=== PATIENT | male | born 1940 | race Caucasian/White ===

== ENCOUNTER 2019-09-23 15:00 | Inpatient (IN) ==
[2019-09-23] MEDS ORDERED: SODIUM CHLORIDE 0.9% 1000ML 500 ML IV ONE (15:17)
[2019-09-23] MEDS ORDERED: KETOROLAC TROMETHAMINE 15 MG/ML VIAL IV STA (15:19)
[2019-09-23] MEDS ORDERED: ONDANSETRON INJ 2 MG/ML 2 ML VIAL IV STA (15:19)
[2019-09-23 16:08] LABS: Basophils # (auto) 0.02 K/uL (0-0.2); Basophils % (auto) 0.2 %; Eosinophils # (auto) 0.06 K/uL (0-0.5); Eosinophils % (auto) 0.7 %; Hemoglobin 12.7 g/dL (14.0-18.0); Immature Granulocytes # (auto) 0.01 K/uL (0.00-0.02); Immature Granulocytes % (auto) 0.1 %; Lymphocytes # (auto) 0.57 K/uL (1.2-3.4); Lymphocytes % (auto) 7.1 %; Mean Corpuscular Hemoglobin 28.9 pg (25-34); Mean Corpuscular Hgb Conc 33.4 g/dL (32-36); Mean Corpuscular Volume 86.4 fL (80-100); Mean Platelet Volume 10.7 fL (7.4-10.4); Monocytes # (auto) 0.67 K/uL (0.11-0.59); Monocytes % (auto) 8.3 %; Neutrophils # (auto) 6.71 K/uL (1.4-6.5); Neutrophils % (auto) 83.6 %; Platelet Count 236 K/uL (130-400); RDW Standard Deviation 41.3 fL (36.4-46.3); White Blood Count 8.04 K/uL (4.8-10.8)
--- NOTE | 2019-09-23 16:25 | CT Scan Report ---
CT SCAN OF THE ABDOMEN AND PELVIS WITHOUT CONTRAST CLINICAL HISTORY: L flank pain. Evaluate for renal or ureteral calculus COMPARISON STUDY: Outside study dated September 2019 TECHNIQUE: CT scan of the abdomen and pelvis was performed from the lung bases to the proximal femurs . Images are reviewed in the axial, sagittal, and coronal planes. IV contrast was not administered fo r this examination. A dose lowering technique was utilized adhering to the principles of ALARA. CT DOSE: 802.55 mGycm FINDINGS: Lower chest: There are bilateral dependent parenchymal opacities. The left lower lobe opacity is wedg e-shaped and peripheral. A pulmonary infarct cannot be excluded. Liver: The unenhanced liver is normal in size, contour, and attenuation. There is no intrahepatic femi iary ductal dilatation. Gallbladder: Cholelithiasis Spleen: Normal in size and attenuation. Pancreas: Unremarkable. Adrenal glands: Unremarkable. Kidneys: There is a punctate nonobstructing lower pole left renal calculus. There is a 32 mm left gamal al cyst. There has been resolution of the previously described left-sided hydronephrosis and hydroure ter. There is an 11 x 7 x 7 mm left UVJ calculus. Bowel: There are no transition zones indicate bowel obstruction. There is no acute diverticulitis. Th ere are surgical clips at the level of the cecal tip with surrounding nodular stranding. This remains unchanged from the prior study and is likely postsurgical Peritoneum: There is no intraperitoneal free air or abdominal ascites. Vasculature: There is an aortic aneurysm status post aortobiiliac stent grafting. The stent extends s uperior to the level of the renal arteries. The [place] aneurysmal sac measures 45 mm. Adenopathy: None. Pelvic viscera: The prostate is enlarged Skeletal structures: No destructive osseous lesions are seen. IMPRESSION: 1. 11 x 7 x 7 mm distal left ureteral calculus at the level of the left ureterovesical junction. Ther e is no current evidence of significant obstructive change 2. Punctate lower pole left renal calculus 3. Cholelithiasis 4. No evidence of bowel obstruction. No evidence of free air 5. Surgical clips the level of the cecal tip with surrounding nodular stranding. This remain stable a nd is likely postsurgical 6. Dependent airspace opacities, likely atelectatic. The left lower lobe opacity is somewhat wedge-sh aped, and therefore the sequela of a pulmonary infarct cannot be excluded 7. Prostatomegaly 8. Infrarenal abdominal aortic aneurysm status post aortobiiliac stent graft ACT 112: Negative or not required by law. Electronically signed by: Tripp Blair M.D. 09/23/2019 4:24 PM
[2019-09-23 16:30] LABS: Albumin Level 3.5 gm/dl (3.4-5.0); BUN Creatinine Ratio 13.4 (10-20); Bilirubin Direct 0.2 mg/dl (0-0.2); Creatinine Clr Calc Pharmacy 48.2 ml/min; Est GFR (African American) 53.7; Est GFR (Non-African American) 46.3; Magnesium 1.9 mg/dl (1.8-2.4); Potassium 4.3 mmol/L (3.5-5.1)
[2019-09-23 16:33] LABS: Bilirubin,Total 0.9 mg/dl (0.2-1); Total Protein 7.4 gm/dl (6.4-8.2)
[2019-09-23] MEDS ORDERED: cefTRIAXone SODIUM 1,000 MG/50 ML BAG IV STA ×2 (16:34→18:07)
[2019-09-23] MEDS ORDERED: SODIUM CHLORIDE 0.9% 1000ML 1,000 ML IV ONE ×2 (17:36→21:00)
[2019-09-23] MEDS ORDERED: MAGNESIUM HYDROXIDE SUSP 30 ML UDC PO PRN (17:55)
[2019-09-23] MEDS ORDERED: ACETAMINOPHEN 325 MG TAB PO PRN (17:55)
[2019-09-23] MEDS ORDERED: ALUMINUM/MAGNESIUM SUSP 30 ML UDC PO PRN (17:55)
[2019-09-23] MEDS ORDERED: POLYETHYLENE (MIRALAX) 17 GM PACK PO PRN (17:55)
[2019-09-23] MEDS ORDERED: LIDOCAINE HCL 2% 2 ML VIAL/AMP(20MG/ML) INFIL ONE ×2 (18:02→19:17)
[2019-09-23] MEDS ORDERED: PROPOFOL IV EMULSION 10 MG/ML 20 ML VIAL IV ONE (18:02)
[2019-09-23] MEDS ORDERED: fentaNYL citrate 100 MCG/2 ML VIAL ONE (18:03)
--- NOTE | 2019-09-23 18:10 | Anesthesiology Consultation ---
Date of Service September 23, 2019 Assessment & Plan (1) Encounter for pre-operative examination: Chart Review Chart Review: Acceptable Risk for Surgery Consults Requested none ASA ASA3 Proposed Anesthesia Anesthesia Type: MAC Risk / Benefits Reviewed With: PT / POA / Parent / Guardian, Accepts Plan and Informed Consent Obtained History Surgery Operation Date: 09/23/19 17:00 Proposed Procedures p Ureteral Stent Insertion/Removal - Donte Luna MD Height/Weight Height: 6 ft 2 in Weight: 88.4 kg Allergies Allergy/AdvReac Type Severity Reaction Status Date / Time No Known Allergies Allergy Unverified 09/23/19 16:41 Medications Home Medications Medication Instructions Recorded Confirmed Last Taken apixaban [Eliquis] 5 mg PO BID 09/19/19 09/23/19 Unknown carvedilol 12.5 mg PO BID 09/19/19 09/23/19 Unknown cilostazol 100 mg PO BID 09/19/19 09/23/19 Unknown ezetimibe 10 mg PO QPM 09/19/19 09/23/19 Unknown montelukast 10 mg PO QPM 09/19/19 09/23/19 Unknown simvastatin 20 mg PO PM 09/19/19 09/23/19 Unknown tamsulosin 0.4 mg PO HS 09/19/19 09/23/19 Unknown sulfamethoxazole 800 1 tab PO BID 7 Days #14 tab 09/22/19 09/23/19 Unknown mg-trimethoprim 160 mg tablet Active Medications Generic Name Dose Route Start Last Admin Trade Name Freq PRN Reason Stop Dose Admin Sodium Chloride 1,000 mls @ 999 mls/hr 09/23/19 17:36 09/23/19 17:40 Nss 1000ml IV 09/23/19 18:36 999 mls/hr .Q1H1M ONE Administration NPO Date Last Intake of Fluids: 09/23/19 Time Last Intake of Fluids: 12:00 Date Last Intake of Solids: 09/22/19 Past Medical History Medical History Atrial fibrillation on eliquis "diagnosed a couple of years ago" - follows [facility] History of nephrolithiasis Hyperlipidemia Kidney stones On anticoagulant therapy Poor historian Exercise / Class Metabolic Activity II 4-5 Yardwork/Stairs/Walk up hill Past Family History Family History Other No family history of adverse response to anesthesia Past Surgical History Surgical History History of AAA (abdominal aortic aneurysm) repair 2015 History of appendectomy History of colonoscopy History of esophagogastroduodenoscopy (EGD) History of left knee replacement History of tonsillectomy Past Anesthesia History No Hx of Anesthesia Complications and No Family Hx of Anesthesia Complications History of PONV No Hx of PONV and No Hx of Motion Sickness Social History Smoking Status: Unknown if ever smoked Hx Alcohol Use: No Hx Substance Use: No substance use type: does not use Physical Exam Vital Signs Last Vital Signs Temp 99.7 F H 09/23/19 15:09 Pulse 105 H 09/23/19 18:05 Resp 18 09/23/19 18:05 BP 106/73 09/23/19 18:05 Pulse Ox 95 09/23/19 18:05 ENMT Mouth: no dentition abnormality Thyromental Distance: > or= 3.5 Finger Breadths Mallampati Class: II Neck normal visual inspection Respiratory normal respiratory effort Auscultation: lungs clear to auscultation bilaterally Cardiovascular Rate/Rhythm: regular rhythm and + tachycardic Heart Sounds: + murmur (3/6 MANUELA) Testing Laboratory Results 09/23/19 15:55 09/23/19 15:55 Electrocardiogram Date: 09/17/19 Poor data quality, interpretation may be adversely affected Atrial flutter, rate 96 bpm Abnormal ECG When compared with ECG of 24-DEC-2015 11:26, Atrial flutter has replaced Sinus rhythm Confirmed by Donte Diaz ([id number]) on 09/17/2019 4:17:46 PM Chest X-Ray Date: 09/17/19 IMPRESSION: Mild cardiomegaly with no active disease in the chest.
--- NOTE | 2019-09-23 18:10 | History & Physical Report ---
Date of Service September 23, 2019 Assessment & Plan (1) Calculus of distal left ureter: - CT - 11 x 7 x 7 mm distal L ureteral calculus at the level of the L UVJ; no evidence of significant obstructive change; punctate lower pole L renal calculus; cholelithiasis; no bowel obstruction; no free air; surgical clips at level of cecal tip with surrounding nodular stranding likely post-operative (did have a appendenctomy Dec); prostatomegaly; dependent airspace opacity likely atelectic but with some wedge-shaped opacity in LLL cannot R/O pulmonary infarct; infrarenal AAA with stent graft - Patient is without leukocytosis, lactic normal, however is tachycardic, hypotensive, low grade fever, source UTI/stone - concern for obstructive uropathy with mild renal impairment with possible impending sepsis given hypotensive state -- BP did respond with fluid bolus - will await pressures post-operatively for need of additional boluses and then use maintenance fluids - Can continue Flomax 0.4 mg HS - Urology following - discussed with Dr. Luna - patient to OR this evening to stent/stone management (2) Acute kidney injury: - Cr mildly elevated at 1.42 - possibly obstructive uropathy vs some pre- renal dehydration from vomiting/diarrhea - Continue IVF and stone management - reassess labs in AM (3) Acute UTI: - Cx from 09/17 with pansensitive E. coli - Only took one pill of Bactrim and unable to take anymore due to nausea/vomiting - Continue Rocephin daily until oral intake improved (4) History of AAA (abdominal aortic aneurysm) repair: - Occurred in 2016 - S/P stent graft - Continue Cilostazol 100 mg BID (5) Atrial fibrillation: - Examines in a regular rhythm and HR slightly elevated - EKG from 09/17 w ith A Flutter - no EKG as of yet this admission - Has a significant murmur and patient is aware of - however does not follow in- network to know details on this; follows with Cardiology in [place] - Recently wore a holter monitor but does not have results yet and was supposed to follow-up soon for results - Pending BP response with fluid resuscitation/stone management - can continue Carvedilol 12.5 mg BID with hold parameters - Continue Eliquis 5 mg BID is alright with Urology (6) Hyperlipidemia: - Continue Ezetimibe 10 mg daily and Simvastatin 20 mg daily History of Present Illness Chief Complaint: L Flank Pain Primary Care Provider: Kiel Orr MD Mr. Cates is an 78 y/o male with PMHx of Atrial Fibrillation, AAA S/P Repair with Stent, BPH, and S/P Perforated Appendix (Jul 2019) who presents to the ED c/o worsening L flank pain since last night. Patient presented to the Urology office on 09/17. He had L flank pain and nausea at that time and CT revealed a distal ureteral stone. He was to have ESWL on Sunday. However, last night pain and nausea worsened. He was also found to have a pansensitive E. coli UTI and was prescribed Bactrim. He took one pill yesterday but due to nausea and vo miting has not been able to keep anymore down. He denies feeling fevered/chilled but reports lack of appetite. He reports having frequent diarrhea since his Appe in July. His states he was tested for C. diff a few weeks back for this and it was negative. He is on anticoagulation for A Fib with last dose of Eliquis on 09/22 in AM as he was too sick to take his evening dose and any today. He has a significant murmur on exam and states he is aware of it. Distribution appears aortic but no echocardiogram to assess. He denies H/O NH or CHF. He does not appear in failure at this time. Upon arrival to ED, patient's vitals were HR 118, BP 144/78, and temp 37.6. While in the ED blood pressure reduced to 87/56 and remained tachycardic. Patient is mentating appropriately but concern would be for impending sepsis given stone and urinary infection. BP improved to 106/73 with fluid bolus. ED provider discussed with Dr. Luna, as well I spoke with him as well. Given the reducing blood pressure, low grade fever, and tachycardia he will go to the OR for intervention tonight. Allergies Allergy/AdvReac Type Severity Reaction Status Date / Time No Known Allergies Allergy Unverified 09/23/19 16:41 Home Medications Home Medications Medication Instructions Recorded Confirmed Type apixaban [Eliquis] 5 mg PO BID 09/19/19 09/23/19 History carvedilol 12.5 mg PO BID 09/19/19 09/23/19 History cilostazol 100 mg PO BID 09/19/19 09/23/19 History ezetimibe 10 mg PO QPM 09/19/19 09/23/19 History montelukast 10 mg PO QPM 09/19/19 09/23/19 History simvastatin 20 mg PO PM 09/19/19 09/23/19 History tamsulosin 0.4 mg PO HS 09/19/19 09/23/19 History sulfamethoxazole 800 1 tab PO BID 7 Days #14 tab 09/22/19 09/23/19 Rx mg-trimethoprim 160 mg tablet Past Med/Surg History Medical History Atrial fibrillation on eliquis "diagnosed a couple of years ago" - follows [facility] History of nephrolithiasis Hyperlipidemia Kidney stones On anticoagulant therapy Poor historian Surgical History History of AAA (abdominal aortic aneurysm) repair 2016 History of appendectomy History of colonoscopy History of esophagogastroduodenoscopy (EGD) History of left knee replacement History of tonsillectomy Family History (Updated 09/23/19 @ 19:08 by Kathleen Castillo PA-C) Other Family history non-contributory No family history of adverse response to anesthesia Social History Preferred Language: Vincentian Communication Ability: Effective Environmental Field Office Manager Required: No Beliefs That Will Affect Care: None Current Living Situation: Spouse Other Information That Helps Us Care for You: No Feels Safe at Home: Yes Safety Concerns: Feels Safe At This Time Smoking Status: Unknown if ever smoked Hx Alcohol Use: No Hx Substance Use: No Review of Systems Constitutional: + anorexia; no fever and no chills Eyes: no worsening vision Ear, Nose, Mouth, Throat: no nasal congestion, no sore throat and no dysphagia Respiratory: no cough and no dyspnea Cardiovascular: no chest pain, no palpitations, no lightheadedness and no edema Gastrointestinal: + abdominal pain (L flank), + nausea and + diarrhea/loose stools; no vomiting, no constipation and no melena Genitourinary: no dysuria Musculoskeletal: no body aches Integumentary: no rash Neurologic: no tingling and no numbness Physical Exam Constitutional: WD/WN, vitals as above no acute distress Eyes: + anicteric sclerae ENMT: Ears: no hearing impairment Neck: trachea midline Respiratory: normal respiratory effort, lungs clear to auscultation Cardiovascular: Rate/Rhythm: regular rate and regular rhythm Heart Sounds: + murmur (loud; distribution suggests aortic) Vessels: no JVD Gastrointestinal (Abdomen): Inspection/Auscultation: normal bowel sounds Percussion/Palpation: + abdomen tender and abdomen soft; no guarding and abdomen not rigid Musculoskeletal: no cyanosis or clubbing, extremities motor strength 5/5 Skin: no rashes, warm and dry Neurologic: moves all extremities Psychiatric: A+Ox3, euthymic affect Genitourinary: + CVA tenderness (L) Results & Data Vital Signs (Past 12 Hours) Vital Signs Temp Pulse Pulse Resp BP BP Pulse Ox 09/23/19 18:05 105 H 18 106/73 95 09/23/19 17:02 113 H 20 87/56 L 95 09/23/19 15:09 37.6 C H 118 H 18 144/78 H 96 Code Status & VTE Plan VTE Prophylaxis Plan VTE Prophylaxis will be ordered: Yes Supervising Physician Co-Signing Physician Notes Patient seen and examined, chart reviewed, case discussed with CLAY Castillo and I agree with her assessment and plan as documented above. Briefly, patient is an 78yo C male with history of AF on Eliquis anticoagulation, AAA s/p repair presenting with calculus of distal left ureter, [id number], +UA. Patient became mildly hypotensive in the ER which responded to IVF. On exam he is afebrile, HD improved after IVF, nontoxic in appearance, awake alert and oriented x3 Skinwarm, dry, intact, no rash/lesions HEENTnormocephalic/atraumatic, pupils equal react to light, moist mucous membranes, neck supple Heart+ S1/S2, regular, 4-6 systolic ejection murmur heard across the precordium LungsCTA Abdomensoft, nontender, nondistended Extremitieswarm, well-perfused, 2+ pulses Labs and images reviewed. Significant for stable normochromic/normocytic anemia. Mildly increased BUN = 19, creatinine = 1.14 Assessment/plan11 X7X 7 mm distal left ureteral calculus at the level of the left UVJ. Concern for concomitant UTI. Patient briefly hypotensive in the ER responsive to IV fluids IV fluids, ceftriaxone, continue Flomax Urology consultation assistance appreciated We will keep n.p.o. for now, patient to go to the OR this evening for stone management Remainder of plan as above PG Care Time/CCT Total # of Minutes Spent Total Time Spent with Patient: Total time spent is greater than 50% in coordinat ion of care (as documented) at patient's floor/unit and/or counseling patient: Coding Level of Care Code 94335 Initial Inpt Care Lvl 3 Diagnoses Calculus of distal left ureter N20.1 Acute kidney injury N17.9 Acute UTI N39.0 History of AAA (abdominal aortic aneurysm) repair Z98.890 Atrial fibrillation I48.91 Hyperlipidemia E78.5
--- NOTE | 2019-09-23 18:19 | Urology Consultation ---
Date of Consultation September 23, 2019 Assessment & Plan (1) Sepsis: Present on Admission?: Yes (2) Acute UTI: Present on Admission?: Yes (3) Calculus of distal left ureter: Present on Admission?: Yes History of Present Illness History of Present Illness 78 y/o male with a left distal stone seen by Annie Miller and schedualed for eswl Sunday but developed a severe pain and nausea and presented with a distal stone . His culture from 09/17 was positive and he had a low grade fever in the ER and became tachycardic and dropped his BP into the 80 s . I came in to place a stent . Pt started on rocephin and has been seen and admitted by the hospitalists. Pt is on elequis for afib Allergies Allergy/AdvReac Type Severity Reaction Status Date / Time No Known Allergies Allergy Unverified 09/23/19 16:41 Home Medications Home Medications Medication Instructions Recorded Confirmed Type apixaban [Eliquis] 5 mg PO BID 09/19/19 09/23/19 History carvedilol 12.5 mg PO BID 09/19/19 09/23/19 History cilostazol 100 mg PO BID 09/19/19 09/23/19 History ezetimibe 10 mg PO QPM 09/19/19 09/23/19 History montelukast 10 mg PO QPM 09/19/19 09/23/19 History simvastatin 20 mg PO PM 09/19/19 09/23/19 History tamsulosin 0.4 mg PO HS 09/19/19 09/23/19 History sulfamethoxazole 800 1 tab PO BID 7 Days #14 tab 09/22/19 09/23/19 Rx mg-trimethoprim 160 mg tablet Patient History Medical History Atrial fibrillation on eliquis "diagnosed a couple of years ago" - follows [facility] History of nephrolithiasis Hyperlipidemia Kidney stones On anticoagulant therapy Poor historian Surgical History History of AAA (abdominal aortic aneurysm) repair 2015 History of appendectomy History of colonoscopy History of esophagogastroduodenoscopy (EGD) History of left knee replacement History of tonsillectomy Family History Other No family history of adverse response to anesthesia Social History Preferred Language: German Communication Ability: Effective Top Collar Maker Required: No Beliefs That Will Affect Care: None Current Living Situation: Spouse Other Information That Helps Us Care for You: No Feels Safe at Home: Yes Safety Concerns: Feels Safe At This Time Smoking Status: Unknown if ever smoked Hx Alcohol Use: No Hx Substance Use: No Physical Exam Constitutional: WD/WN, vitals as above well developed and healthy appearing Eyes: PERRL, conjunctivae normal, anicteric sclerae ENMT: external ear and nose normal, oropharynx normal Neck: trachea midline, no thyromegaly Respiratory: normal respiratory effort Cardiovascular: Extremities: no edema Gastrointestinal (Abdomen): Inspection/Auscultation: abdomen normal to inspection Percussion/Palpation: abdomen soft Musculoskeletal: no cyanosis or clubbing, extremities motor strength 5/5 Skin: no rashes, warm and dry Neurologic: CN's II-XI intact bilaterally; no focal motor deficits Psychiatric: A+Ox3, euthymic affect Lymphatic: no cervical or axillary lymphadenopathy Results & Data Vital Signs (Past 12 Hours) Vital Signs Temp Pulse Pulse Resp BP BP Pulse Ox 09/23/19 18:05 105 H 18 106/73 95 09/23/19 17:02 113 H 20 87/56 L 95 09/23/19 15:09 37.6 C H 118 H 18 144/78 H 96 PG Care Time/CCT Total # of Minutes Spent Total Time Spent with Patient: Total time spent is greater than 50% in coordination of care (as documented) at patient's floor/unit and/or counseling patient: Coding Level of Care Code 37566 Inpt Consult Level 4 Diagnoses Sepsis A41.9 Sepsis acute organ dysfunction status: unspecified Sepsis type: sepsis due to unspecified organism Acute UTI N39.0 Calculus of distal left ureter N20.1 (1) Sepsis Sepsis acute organ dysfunction status: unspecified Sepsis type: sepsis due to unspecified organism Qualified Code(s): A41.9 - Sepsis, unspecified organism
[2019-09-23] MEDS ORDERED: CONRAY 60% 50 ML VIAL ONE (18:32)
[2019-09-23] MEDS ORDERED: IOTHALAMATE MEGLUMINE II 17.2% 250 ML VIAL ONE (18:41)
[2019-09-23] MEDS ORDERED: fentaNYL citrate 100 MCG/2 ML VIAL IV PRN (18:52)
[2019-09-23] MEDS ORDERED: ePHEDrine sulfate 50 MG/ML AMP IV PRN (18:52)
[2019-09-23] MEDS ORDERED: ATROPINE SULFATE 0.1 MG/ML 10ML SYR IV PRN (18:52)
[2019-09-23] MEDS ORDERED: ONDANSETRON INJ 2 MG/ML 2 ML VIAL IV PRN (18:52)
--- NOTE | 2019-09-23 19:15 | Post Operative Brief Note ---
PG Immediate Post Op with CF Date of Surgery September 23, 2019 Pre & Post Diagnosis Operation Date: 09/23/19 17:00 Pre-Op Diagnosis: Left distal ureteral calculus, sepsis, acute UTI Post-Op Diagnosis: Left distal ureteral calculus, sepsis, acute UTI I identified the patient and participated in the time-out.: Yes Procedure Operation Date: 09/23/19 17:00 Actual Procedures p Cystoscopy, Retrograde Pyelogram, Ureteral Stent Insertion(Left) - Donte Luna MD Surgeon Donte Luna MD Breeding Manager none Estimated Blood Loss 1 Findings Consistent with Post-Op Diagnosis
[2019-09-23] MEDS ORDERED: PHENYLEPHRINE HCL 10 MG/ML VIAL ONE (19:18)
--- NOTE | 2019-09-23 19:38 | Anesthesiology Progress Note ---
Date of Service September 23, 2019 Anesthesia Post Procedure Vital Signs Vital Signs: Temp Pulse Pulse Pulse Resp BP BP 09/23/19 19:30 100 H 16 99/73 L 09/23/19 19:24 97.3 F L 102 H 16 100/62 09/23/19 18:05 105 H 18 106/73 09/23/19 17:02 113 H 20 87/56 L 09/23/19 15:09 99.7 F H 118 H 18 144/78 H Pulse Ox 09/23/19 19:30 98 09/23/19 19:24 100 09/23/19 18:05 95 09/23/19 17:02 95 09/23/19 15:09 96 Transfer of Care Handoff Completed per policy Notes Mental Status: alert / awake / arousable and participated in evaluation Patient Amnestic to Procedure: Yes Nausea / Vomiting: adequately controlled Pain: adequately controlled Airway Patency, RR, SpO2: stable & adequate BP & HR: stable & adequate Hydration State: stable & adequate Anesthetic Complications: no major complications apparent and Pt Satisfied with anesthetic care
[2019-09-23] MEDS ORDERED: MoRPHine SULFATE 2 MG/ML CARP IV PRN (20:10)
--- NOTE | 2019-09-23 20:16 | Emergency Department Note ---
Entered by Delaney Jimenez acting as a scribe for History of Present Illness General Chief complaint: Flank Pain Stated complaint: PAIN IN SIDE, SICK IN STOMACH, KIDNEY STONE Time Seen by Provider: 09/23/19 15:17 Source: patient History of Present Illness Provider complaint: Flank Pain Onset (ago): day(s) 1 Location: back and left Maximum Pain Intensity: 9 Relieved By: + none Exacerbated By: + movement Associated symptoms: + denies other symptoms (Urinary symptoms, hematuria ) and + nausea/vomiting; no chest pain and no shortness of breath The patient is a 78 year old male who presents to the Emergency Room with complaints of left sided flank pain that began yesterday. The patient notes that he has a kidney stone and has a lithotripsy scheduled with Dr. Valencia on Sunday but thinks the stones are moving. The patient states that his symptoms are exacerbated by movement but not relieved by anything specific. The patient reports experiencing nausea/vomiting but denies any dysuria. The patient also denies experiencing any hematuria, chest pain, or shortness of breath. The patient notes that he was diagnosed with a UTI and placed on Bactrim. Home Medications Home Medications Medication Instructions Recorded Confirmed Type apixaban [Eliquis] 5 mg PO BID 09/19/19 09/23/19 History carvedilol 12.5 mg PO BID 09/19/19 09/23/19 History cilostazol 100 mg PO BID 09/19/19 09/23/19 History ezetimibe 10 mg PO QPM 09/19/19 09/23/19 History montelukast 10 mg PO QPM 09/19/19 09/23/19 History simvastatin 20 mg PO PM 09/19/19 09/23/19 History tamsulosin 0.4 mg PO HS 09/19/19 09/23/19 History sulfamethoxazole 800 1 tab PO BID 7 Days #14 tab 09/22/19 09/23/19 Rx mg-trimethoprim 160 mg tablet Allergies Allergy/AdvReac Type Severity Reaction Status Date / Time No Known Allergies Allergy Unverified 09/23/19 16:41 Past Med/Surg History Medical History Atrial fibrillation on eliquis "diagnosed a couple of years ago" - follows [facility] History of nephrolithiasis Hyperlipidemia Kidney stones On anticoagulant therapy Poor historian Surgical History History of AAA (abdominal aortic aneurysm) repair 2016 History of appendectomy History of colonoscopy History of esophagogastroduodenoscopy (EGD) History of left knee replacement History of tonsillectomy Family History (Updated 09/23/19 @ 19:08 by Kathleen Castillo PA-C) Other Family history non-contributory No family history of adverse response to anesthesia Social History Preferred Language: South African Communication Ability: Effective University Controller Required: No Beliefs That Will Affect Care: None Current Living Situation: Spouse Other Information That Helps Us Care for You: No Feels Safe at Home: Yes Safety Concerns: Feels Safe At This Time Smoking Status: Unknown if ever smoked Hx Alcohol Use: No Hx Substance Use: No Review of Systems See HPI for pertinent positives & negatives. and A total of 10 systems reviewed and were otherwise negative Physical Exam Vital Signs Vital Signs - 24 hr 09/23/19 15:09 09/23/19 17:02 09/23/19 18:05 Temperature 37.6 C H Temperature Source Oral Pulse Rate 118 H Pulse Rate [Right Finger] 113 H 105 H Respiratory Rate 18 20 18 Blood Pressure 144/78 H Blood Pressure [Right Arm] 87/56 L 106/73 Blood Pressure Mean 100 Blood Pressure Mean [Right Arm] 66 84 Blood Pressure Position [Right Arm] Lying Pulse Oximetry 96 95 95 Oxygen Delivery Method Room Air Room Air Room Air Sepsis Recent Fever Within 48 Hours No Sepsis New/Unexplained Change in Mental Status No Sepsis Action Taken by Nursing No Action Required GENERAL: He is oriented to person, place, and time. He appears well-developed and well-nourished. He does not appear distressed. HENT: Exam performed. - Head: Normocephalic and atraumatic. - Right Ear: External ear normal. No mastoid tenderness. - Left Ear: External ear normal. No mastoid tenderness. - Mouth/Throat: The oropharynx is clear and moist. No trismus in the jaw. No dental abscesses or uvula swelling. No oropharyngeal exudate or tonsillar abscesses. EYES: Conjunctivae and EOM are normal. Pupils are equal, round, and reactive to light. Right eye exhibits no discharge. Left eye exhibits no discharge. No scleral icterus. NECK: Normal range of motion. Neck supple. No JVD present. No spinous process t enderness present. No carotid bruit present. No rigidity. No tracheal deviation and normal range of motion present. No Brudzinski's sign and no Kernig's sign noted. CV: Normal rate, regular rhythm, normal heart sounds and intact distal pulses. There is no peripheral edema. Palpable radial pulses bue. PULM/CHEST: Effort normal and breath sounds normal. No respiratory distress. No stridor. He has no wheezes. He has no rales. - Chest Wall: He exhibits no tenderness. ABD: The abdomen is soft. Bowel sounds are normal. He has no distension. No mass is present. There is LLQ pain on palpation of abdomen. There is no rebound, no guarding, no Arrington's sign and no tenderness at McBurney's point. Rovsig negative. MUSC/SKEL: Normal range of motion. There is no peripheral edema, left CVA tenderness, no deformity. LYMPH: No cervical adenopathy. NEURO: He is alert and oriented to person, place, and time. He has normal strength. No cranial nerve deficit or sensory deficit. Coordination and gait normal. GCS eye subscore is 4. GCS verbal subscore is 5. GCS motor subscore is 6. Cerebellar tests wnl. SKIN: Skin is warm and dry. He is not diaphoretic. PSYCH: He has a normal mood and affect. Behavior is normal. Judgment and thought content normal. Course Course 152: Past medical records reviewed. The patient was evaluated in room A10. A complete history and physical exam was performed. 154: EMR reviewed. Patient had a urine culture on September 17 that was positive for bloom sensitive E. Coli. 1649: I spoke with Dr. Kaylah Gonzalez- Hospitalist about the patient's case and she will accept the patient for further evaluation and would like us to speak to [facility]. 1655: I spoke with Dr. Luna- Urology about the patient's case and he said he wants to patient to be NPO and if he develops a fever overnight he wants the hospitalist team to contact him so he can come in to put a stent in. He states this patient has a high susceptibility to become septic. 1734: Patient was being evaluated by hospitalist and his blood pressure was 80/50. Fluids are being given and I went to reevaluate the patient and he was tachycardic in the 110's. It is thought that the patient is becoming septic. I was not notified by the nursing staff about these vital signs. I spoke with Dr. Luna and he states that he is going to take the patient to the OR for a stent placement. Second IV was started and the patient will be given a repeat bolus of normal saline. 1800: Pressure and tachycardia improved. Pulse 105 blood pressure 106/73. Dr. Luna is at bedside and will take the patient to the OR. Administered Medications Discontinued Medications Sodium Chloride (Nss 1000ml) 500 mls @ 999 mls/hr IV .Q31M ONE Stop: 09/23/19 15:47 Last Infusion: 09/23/19 17:14 Dose: 0 mls/hr Documented by: [id number] Admin: 09/23/19 16:02 Dose: 999 mls/hr Documented by: [id number] Ceftriaxone Sodium (Rocephin) 1,000 mg in 50 mls @ 100 mls/hr IV NOW STA Stop: 09/23/19 17:03 Last Admin: 09/23/19 16:59 Dose: 100 mls/hr Documented by: [id number] Sodium Chloride (Nss 1000ml) 1,000 mls @ 999 mls/hr IV .Q1H1M ONE Stop: 09/23/19 18:36 Last Admin: 09/23/19 17:40 Dose: 999 mls/hr Documented by: [id number] Iothalamate Meglumine (Cysto-Conray Ii) Confirm Administered Dose 250 ml .ROUTE .STK-MED ONE Stop: 09/23/19 18:42 Last Admin: 09/23/19 19:12 Dose: 10 ml Documented by: [id number] Ketorolac Tromethamine (Toradol) 15 mg IV NOW STA Stop: 09/23/19 15:20 Last Admin: 09/23/19 16:02 Dose: 15 mg Documented by: [id number] Ondansetron HCl (Zofran) 4 mg IV NOW STA Stop: 09/23/19 15:20 Last Admin: 09/23/19 16:02 Dose: 4 mg Documented by: [id number] Critical Care Time Critical Care Time: Yes Total Critical Care Time: 36 I have personally spent approximately 36 minutes of critical care time in the direct management of this patient. This includes bedside care, interpretation of diagnostic studies, and testing, discussion with consultants, patient, and family members, and other required patient management activities. This approximate 36 minutes is in excess of all separately billable procedures. Medical Decision Making Medical Records Attestation: I reviewed the patient's medical records. Home Medications Current Medication List: was personally reviewed by me Laboratory Data Attestation: I reviewed the patient's lab results. Result diagrams: 09/23/19 15:55 09/23/19 15:55 Lab Results 09/23/19 09/23/19 09/23/19 Range/Units 15:55 15:55 15:55 WBC 8.04 (4.8-10.8) K/uL RBC 4.40 L (4.7-6.1) M/uL Hgb 12.7 L (14.0-18.0) g/dL Hct 38.0 L (42-52) % MCV 86.4 (80-100) fL MCH 28.9 (25-34) pg MCHC 33.4 (32-36) g/dL RDW Std Deviation 41.3 (36.4-46.3) fL RDW Coeff of Soheila 13.0 (11.5-14.5) % Plt Count 236 (130-400) K/uL MPV 10.7 H (7.4-10.4) fL Immature Gran % (Auto) 0.1 % Neut % (Auto) 83.6 % Lymph % (Auto) 7.1 % [place] % (Auto) 8.3 % Eos % (Auto) 0.7 % Baso % (Auto) 0.2 % Immature Gran # (Auto) 0.01 (0.00-0.02) K/uL Neut # (Auto) 6.71 H (1.4-6.5) K/uL Lymph # (Auto) 0.57 L (1.2-3.4) K/uL [place] # (Auto) 0.67 H (0.11-0.59) K/uL Eos # (Auto) 0.06 (0-0.5) K/uL Baso # (Auto) 0.02 (0-0.2) K/uL Sodium 133 L (136-145) mmol/L Potassium 4.3 (3.5-5.1) mmol/L Chloride 103 (98-107) mmol/L Carbon Dioxide 23 (21-32) mmol/L Anion Gap 7.0 (3-11) BUN 19 H (7-18) mg/dl Creatinine 1.42 H (0.6-1.4) mg/dl Est Cr Clr Drug Dosing 48.2 ml/min Est GFR ( Amer) 53.7 Est GFR (Non-Af Amer) 46.3 BUN/Creatinine Ratio 13.4 (10-20) Glucose 135 H (70-99) mg/dl Lactate 1.4 (0.4-2.0) mmol/L Calcium 9.0 (8.5-10.1) mg/dl Magnesium 1.9 (1.8-2.4) mg/dl Total Bilirubin 0.9 (0.2-1) mg/dl Direct Bilirubin 0.2 (0-0.2) mg/dl AST 14 L (15-37) U/L ALT 14 (12-78) U/L Alkaline Phosphatase 63 (45-117) U/L Total Protein 7.4 (6.4-8.2) gm/dl Albumin 3.5 (3.4-5.0) gm/dl Lipase 39 L (73-393) U/L Imaging Data Radiologist's Impression: Radiology results as stated below per my review and the radiologist's interpretation: CT SCAN OF THE ABDOMEN AND PELVIS WITHOUT CONTRAST CLINICAL HISTORY: L flank pain. Evaluate for renal or ureteral calculus COMPARISON STUDY: Outside study dated September 2019 TECHNIQUE: CT scan of the abdomen and pelvis was performed from the lung bases to the proximal femurs. Images are reviewed in the axial, sagittal, and coronal planes. IV contrast was not administered for this examination. A dose lowering technique was utilized adhering to the principles of ALARA. CT DOSE: 802.55 mGycm FINDINGS: Lower chest: There are bilateral dependent parenchymal opacities. The left lower lobe opacity is wedge-shaped and peripheral. A pulmonary infarct cannot be excluded. Liver: The unenhanced liver is normal in size, contour, and attenuation. There is no intrahepatic biliary ductal dilatation. Gallbladder: Cholelithiasis Spleen: Normal in size and attenuation. Pancreas: Unremarkable. Adrenal glands: Unremarkable. Kidneys: There is a punctate nonobstructing lower pole left renal calculus. There is a 32 mm left renal cyst. There has been resolution of the previously described left-sided hydronephrosis and hydroureter. There is an 11 x 7 x 7 mm left UVJ calculus. Bowel: There are no transition zones indicate bowel obstruction. There is no ac elvin diverticulitis. There are surgical clips at the level of the cecal tip with surrounding nodular stranding. This remains unchanged from the prior study and is likely postsurgical Peritoneum: There is no intraperitoneal free air or abdominal ascites. Vasculature: There is an aortic aneurysm status post aortobiiliac stent grafting. The stent extends superior to the level of the renal arteries. The [place] aneurysmal sac measures 45 mm. Adenopathy: None. Pelvic viscera: The prostate is enlarged Skeletal structures: No destructive osseous lesions are seen. IMPRESSION: 1. 11 x 7 x 7 mm distal left ureteral calculus at the level of the left ureterovesical junction. There is no current evidence of significant obstructive change 2. Punctate lower pole left renal calculus 3. Cholelithiasis 4. No evidence of bowel obstruction. No evidence of free air 5. Surgical clips the level of the cecal tip with surrounding nodular stranding. This remain stable and is likely postsurgical 6. Dependent airspace opacities, likely atelectatic. The left lower lobe opacity is somewhat wedge-shaped, and therefore the sequela of a pulmonary infarct cannot be excluded 7. Prostatomegaly 8. Infrarenal abdominal aortic aneurysm status post aortobiiliac stent graft ACT 112: Negative or not required by law. Electronically signed by: Tripp Blair M.D. 09/23/2019 4:24 PM Blood Pressure Blood Pressure Findings: Elevated blood pressure Blood Pressure Disposition: further management by hospitalist JESSICA Narrative 1520: Past medical records reviewed. The patient was evaluated in room A10. A complete history and physical exam was performed. 1546: EMR reviewed. Patient had a urine culture on September 17 that was positive for bloom sensitive E. Coli. 1650: I spoke with Dr. Kaylah Gonzalez- Hospitalist about the patient's case and she will accept the patient for further evaluation and would like us to speak to [facility]. 1656: I spoke with Dr. Luna- Urology about the patient's case and he said he wants to patient to be NPO and if he develops a fever overnight he wants the hospitalist team to contact him so he can come in to put a stent in. He states this patient has a high susceptibility to become septic. 1734: Patient was being evaluated by hospitalist and his blood pressure was 80/50. Fluids are being given and I went to reevaluate the patient and he was tachycardic in the 110's. It is thought that the patient is becoming septic. I was not notified by the nursing staff about these vital signs. I spoke with Dr. Luna and he states that he is going to take the patient to the OR for a stent placement. Second IV was started and the patient will be given a repeat bolus of normal saline. 1800: Pressure and tachycardia improved. Pulse 105 blood pressure 106/73. Dr. Luna is at bedside and will take the patient to the OR. Impression & Plan Kidney stone, Acute UTI, Sepsis Discharge Plan Visit Data *Final* Discharge Date/Time: 09/23/19 19:01 Chief Complaint: Flank Pain Stated Complaint: PAIN IN SIDE, SICK IN STOMACH, KIDNEY STONE ED Provider: Jeff Kamara Discharge Problem: Kidney stone, Acute UTI, Sepsis Patient Disposition: Admitted As Inpatient Discharge Instructions Interventions: ED Discharge Assessment Last Done: 09/23/19 19:01 Discharge Problem: Sepsis Qualifiers: Sepsis type: sepsis due to unspecified organism Sepsis acute organ dysfunction status: unspecified Qualified Code(s): A41.9 - Sepsis, unspecified organism The scribe's documentation has been prepared under my direction and personally reviewed by me in its entirety. I confirm that the note above accurately reflects all work, treatment, procedures, and medical decision making performed by me.
[2019-09-23] MEDS ORDERED: SEPTRA DS HOME PACK 1 EA VIAL PO SCH (21:00)
[2019-09-23] MEDS ORDERED: TAMSULOSIN HCL 0.4 MG CAP PO SCH (21:00)
[2019-09-23] MEDS: APIXABAN 5 MG TABLET PO SCH (21:31)
[2019-09-23] MEDS: MONTELUKAST SODIUM 10 MG TABLET PO SCH (21:31)
[2019-09-23] MEDS: EZETIMIBE 10 MG TABLET PO SCH (21:31)
[2019-09-23] MEDS: TAMSULOSIN HCL 0.4 MG CAP PO SCH (21:31)
[2019-09-23] MEDS: SIMVASTATIN 20 MG TAB PO SCH (21:31)
--- NOTE | 2019-09-23 22:09 | Operative Report ---
DATE OF OPERATION: 09/23/2019 PREOPERATIVE DIAGNOSES: Left distal stone, urinary tract infection and urosepsis. POSTOPERATIVE DIAGNOSES: Left distal stone, urinary tract infection and urosepsis. PROCEDURE PERFORMED: Cystoscopy and left stent. INDICATIONS: The patient is an 78-year-old male who was seen 6 days ago in the office with a left distal ureteral stone. He had a urine culture taken and was diagnosed with UTI. He was started on antibiotics last night, became nauseous, did not take any further antibiotics. His pain became more severe today, he came to the Emergency Room. In the Emergency Room, he had a temperature of 37.7, he had a normal white count. Did not appear initially septic. Then he became tachycardic and hypotensive with blood pressure in the 80s and pulse in the 120s. Because of this and the fact that he had an infection and obstructing stone elected to take the patient to the OR for stent placement. DESCRIPTION OF THE PROCEDURE: The patient was taken to the cystoscopy suite, he had Venodyne stockings placed, he was given sedation and cystoscopy was performed. The patient had no strictures after he had been prepped and draped in the usual sterile fashion. Once inside the bladder, the left ureteral orifice was quite irritated. An open-ended catheter was placed into the orifice and a guidewire was passed beyond the orifice into the proximal ureter. The 5-Icelandic open-ended catheter was passed over the guidewire beyond the stone, then a retrograde was performed which showed mild hydronephrosis. Subsequently, the wire was replaced, then the dual flex wire was confirmed to be in the kidney. Then a 4.8 Icelandic variable length stent was passed over the wire when it was curled into the renal pelvis, there were several curls in the bladder. The wire had been removed. The position of the stent was confirmed with fluoroscopy. The patient's bladder was emptied. He was transferred to recovery room in stable condition. I attest to the content of the Intraoperative Record and any orders documented therein. Any exception s are noted below.
[2019-09-23] MEDS: SODIUM CHLORIDE 0.9% 1000ML 1,000 ML IV SCH (22:18)
[2019-09-24 01:45] LABS: Appearance Urine Cloudy (Clear); Blood Urine 3+ (Negative); Color Urine Brown; Glucose Urine UA Negative (Negative); Ketones Urine Trace (Negative); Leukocyte Esterase Urine Negative (Negative); Nitrite Urine Negative (Negative); Protein Urine 3+ (Negative); Specific Gravity Urine >= 1.030 (1.000-1.030); Urobilinogen Urine Negative (Negative); pH Urine 5.5 (4.5-7.5)
[2019-09-24 01:48] LABS: Bilirubin Urine Negative (Negative); Ictotest Urine Negative (Negative)
[2019-09-24 01:49] LABS: RBC Urine >30 /hpf (0-4)
[2019-09-24 01:50] LABS: Mucus Urine Present (None Prsent); WBC Urine >30 /hpf (0-5)
[2019-09-24 01:51] LABS: Hyaline Casts Urine >30 /lpf (0-5)
[2019-09-24 01:52] LABS: Bacteria Urine 3+ (Negative); Epithelial Cell Urine >30 /lpf (0-5)
[2019-09-24] MEDS ORDERED: SODIUM CHLORIDE 0.9% 1000ML 500 ML IV ONE (02:12)
[2019-09-24 07:08] LABS: Hemoglobin 11.5 g/dL (14.0-18.0); Mean Corpuscular Hgb Conc 32.9 g/dL (32-36); Mean Corpuscular Volume 88.2 fL (80-100); Mean Platelet Volume 10.7 fL (7.4-10.4); Platelet Count 192 K/uL (130-400); RDW Coefficient of Variation 13.2 % (11.5-14.5); RDW Standard Deviation 42.4 fL (36.4-46.3); Red Blood Count 3.97 M/uL (4.7-6.1)
[2019-09-24 07:36] LABS: Calcium 7.7 mg/dl (8.5-10.1); Creatinine Clr Calc Pharmacy 41.8 ml/min; Est GFR (African American) 45.1; Est GFR (Non-African American) 38.9; Potassium 4.3 mmol/L (3.5-5.1)
[2019-09-24] MEDS ORDERED: LOPERAMIDE HCL 2 MG CAP PO PRN (09:58)
[2019-09-24] MEDS ORDERED: carvediloL 6.25 MG TAB PO ONE ×2 (10:01→13:15)
--- NOTE | 2019-09-24 10:30 | Urology Progress Note ---
Date of Service September 24, 2019 Assessment & Plan (1) Calculus of distal left ureter: 78 year-old male patient admitted secondary to left distal ureteral stone, [place], and acute UTI. -POD #1 left ureteral stent placement by Dr. Luna. -Patient febrile overnight. -Creatinine increased today - continue to monitor in addition to urine output. -Will check PVR - order placed. -Urine culture pending. -IV antibiotics per primary team. -Transition to PO antibiotics based on urine culture sensitivity - plan for total of 14 days. -Will arrange follow-up with urology service outpatient to discuss definitive stone management. -Will continue to follow while inpatient. (2) Acute UTI: See above Subjective Patient alert, awake, sitting in the chair. Reports he did not sleep well overnight. Febrile overnight with temperature of 39.4 and 38.3. States he did not feel feverish at that time but did have chills. Does have mild nausea, denies vomiting. Reports dull ache to left abdomen - managed with PO Tylenol. Denies flank pain. Urine output overnight was 60 cc - received IV boluses per primary team. Feels he is emptying his bladder. Denies dysuria or frequency. Does report hematuria as expected. Creatinine today 1.64 (previously 1.42). WBC 4.40 Urine culture pending - on IV Ceftriaxone. Patient requesting to go home today. Denies additional concerns at time of assessment. Review of Systems Constitutional: as per Subjective / HPI and + chills Gastrointestinal: as per Subjective / HPI, + abdominal pain and + nausea; no vomiting Genitourinary: + as per Subjective / HPI and + hematuria; no dysuria Physical Exam Constitutional: well developed and well nourished; no acute distress and not ill appearing Non-toxic appearing. Respiratory: normal respiratory effort and able to speak in complete sentences; no respiratory distress and no audible wheezes Gastrointestinal (Abdomen): Inspection/Auscultation: abdomen normal to inspection; abdomen not distended Percussion/Palpation: abdomen soft; abdomen nontender and no guarding Psychiatric: Orientation: alert, oriented x 3 and cooperative Affect: euthymic affect Genitourinary: no CVA tenderness Urine not visualized at time of exam. Results & Data Vital Signs (Past 12 Hours) Vital Signs Temp Pulse Pulse Pulse Resp BP Pulse Ox 09/24/19 06:56 36.9 C 113 H 16 112/74 95 09/24/19 04:55 116/69 09/24/19 03:45 36.8 C 113 H 18 86/56 L 94 09/24/19 03:08 37.3 C 115 H 09/24/19 02:07 38.3 C H 85/51 L 09/24/19 01:08 38.6 C H 09/24/19 00:18 39.4 C H 116 H 20 139/70 93 09/24/19 00:05 112 H 09/23/19 22:53 37.2 C 113 H 22 123/76 97 PG Care Time/CCT Total # of Minutes Spent Total Time Spent with Patient: Total time spent is greater than 50% in coordination of care (as documented) at patient's floor/unit and/or counseling patient: Coding Level of Care Code 72915 Subseq Hosp Care Lvl 2 Diagnoses Calculus of distal left ureter N20.1 Acute UTI N39.0
[2019-09-24] MEDS: APIXABAN 5 MG TABLET PO SCH ×2 (10:43→20:46)
[2019-09-24] MEDS: HYDROCODONE/ACETAMOPHEN 5/325MG TAB PO PRN ×2 (10:46→15:28)
[2019-09-24] MEDS: SODIUM CHLORIDE 0.9% 1000ML 1,000 ML IV SCH ×2 (13:01→15:15)
[2019-09-24] MEDS: ONDANSETRON INJ 2 MG/ML 2 ML VIAL IV PRN (14:48)
[2019-09-24] MEDS ORDERED: cefTRIAXone SODIUM 2,000 MG in DEXTROSE 5% 50 ML IV SCH (16:00)
--- NOTE | 2019-09-24 17:35 | Hospitalist Progress Note ---
Date of Service September 24, 2019 Assessment & Plan (1) Sepsis: - Sepsis POA due to UTI and L Ureteral Stone - improving - See below (2) Calculus of distal left ureter: - CT - 11 x 7 x 7 mm distal L ureteral calculus at the level of the L UVJ; no evidence of significant obstructive change; punctate lower pole L renal calculus; cholelithiasis; no bowel obstruction; no free air; surgical clips at level of cecal tip with surrounding nodular stranding likely post-operative (did have a appendenctomy Dec); prostatomegaly; dependent airspace opacity likely atelectic but with some wedge-shaped opacity in LLL cannot R/O pulmonary infarct; infrarenal AAA with stent graft - Patient is without leukocytosis, lactic normal, however was tachycardic, hypotensive, low grade fever, source UTI/stone - concern for obstructive uropathy with mild renal impairment with possible impending sepsis given hypotensive state -- BP did respond with fluid bolus - taking in oral fluids and holding on additional fluids and pressures improved - can add again if needed - Can continue Flomax 0.4 mg HS - Urology following - discussed with [employer] team - appreciate input (3) Acute kidney injury: - Cr mildly elevated at 1.42 on admission and slightly higher on AM labs - possibly obstructive uropathy vs some pre-renal dehydration from vomiting/diarrhea - Reassess with AM labs - urine output is improving through the day (4) Acute UTI: - Cx from 09/17 with pansensitive E. coli; new UCx pending - Only took one pill of Bactrim and unable to take anymore due to nausea/vomiting prior to admission - Continue Rocephin daily until oral intake improved (5) History of AAA (abdominal aortic aneurysm) repair: - Occurred in 2016 - S/P stent graft - Hold Cilostazol 100 mg BID (6) Atrial fibrillation: - EKG with 2:1 A Flutter - Has a significant murmur and patient is aware of - however does not follow in- network to know details on this; follows with Cardiology in [place] - Recently wore a holter monitor but does not have results yet and was supposed to follow-up soon for results - Gave Carvedilol 6.25 mg this AM with improvement in HR and BP stable; Has remained stable BP ramesh and HR 80-100 this afternoon - can continue Carvedilol 12.5 mg BID and monitor - Continue Eliquis 5 mg BID - would expect some hematuria given stent placement but will monitor (7) Hyperlipidemia: - Continue Ezetimibe 10 mg daily and Simvastatin 20 mg daily Disposition: Continue Carvedilol and monitor BP and HR; Likely can choose antibiotics off initial culture but can await new one; will need 14 days Abx; Urology outpatient F/U -- Depending on labs, HR/BP it is possible D/C in 1-2 days Admission and Anticipated Discharge Date Admission Date: September 23, 2019 Subjective Reports feeling better today but fatigued from lack of sleep overnight. Some cramping discomfort with the stent but improved with pain medication. HR improved with resumption of half dose of his Coreg. He remains in A Flutter. BP is improved and urine output improving. Limited appetite today but tolerating diet Review of Systems Constitutional: no fever and no chills Respiratory: no cough and no dyspnea Cardiovascular: no chest pain, no palpitations and no edema Gastrointestinal: no abdominal pain, no nausea, no vomiting, no constipation and no diarrhea/loose stools Genitourinary: + hematuria; no dysuria Integumentary: no rash Physical Exam Constitutional: WD/WN, vitals as above no acute distress Eyes: + anicteric sclerae ENMT: Ears: no hearing impairment Neck: trachea midline Respiratory: normal respiratory effort, lungs clear to auscultation Cardiovascular: Rate/Rhythm: regular rate and regular rhythm Heart Sounds: + murmur (loud; distribution suggests aortic) Vessels: no JVD Gastrointestinal (Abdomen): Inspection/Auscultation: normal bowel sounds Percussion/Palpation: + abdomen tender and abdomen soft; no guarding and abdomen not rigid Musculoskeletal: no cyanosis or clubbing, extremities motor strength 5/5 Skin: no rashes, warm and dry Neurologic: moves all extremities Psychiatric: A+Ox3, euthymic affect Genitourinary: + CVA tenderness (L) Results & Data ([facility]) Vital Signs (Past 12 Hours) Vital Signs Temp Pulse Pulse Resp BP Pulse Ox 09/24/19 15:08 37.1 C 98 H 19 129/78 94 09/24/19 10:44 37.2 C 118 H 19 148/86 H 96 09/24/19 06:56 36.9 C 113 H 16 112/74 95 PG Care Time/CCT Total # of Minutes Spent Total Time Spent with Patient: Total time spent is greater than 50% in coordination of care (as documented) at patient's floor/unit and/or counseling patient: Coding Level of Care Code 16161 Subseq Hosp Care Lvl 3 Diagnoses Sepsis A41.9 Sepsis acute organ dysfunction status: unspecified Sepsis type: sepsis due to unspecified organism Calculus of distal left ureter N20.1 Acute kidney injury N17.9 Acute UTI N39.0 History of AAA (abdominal aortic aneurysm) repair Z98.890 Atrial fibrillation I48.91 Hyperlipidemia E78.5 (1) Sepsis Sepsis acute organ dysfunction status: unspecified Sepsis type: sepsis due to unspecified organism Qualified Code(s): A41.9 - Sepsis, unspecified organism
[2019-09-24] MEDS: TAMSULOSIN HCL 0.4 MG CAP PO SCH (20:46)
[2019-09-24] MEDS: EZETIMIBE 10 MG TABLET PO SCH (20:46)
[2019-09-24] MEDS: SIMVASTATIN 20 MG TAB PO SCH (20:46)
[2019-09-24] MEDS: MONTELUKAST SODIUM 10 MG TABLET PO SCH (20:46)
[2019-09-24] MEDS: carvediloL 12.5 MG TAB PO SCH (20:52)
--- NOTE | 2019-09-25 00:14 | Electrocardiogram Report ---
Test Reason : Blood Pressure : / mmHG Vent. Rate : 110 BPM Atrial Rate : 220 BPM P-R Int : 000 ms QRS Dur : 084 ms QT Int : 328 ms P-R-T Axes : 082 051 060 degrees QTc Int : 443 ms Atrial flutter with 2:1 A-V conduction Low voltage QRS Septal infarct , age undetermined Abnormal ECG When compared with ECG of 17-SEP-2019 15:17, Septal infarct is now Present Confirmed by Terell Sarah ([id number]) on 09/25/2019 12:13:47 AM Referred By: REFERRED SELF Confirmed By:Terell Sarah
[2019-09-25] MEDS: ONDANSETRON INJ 2 MG/ML 2 ML VIAL IV PRN (02:53)
[2019-09-25 05:41] LABS: Hematocrit (blood only) 34.2 % (42-52); Mean Corpuscular Hemoglobin 28.3 pg (25-34); Mean Corpuscular Hgb Conc 32.2 g/dL (32-36); Mean Corpuscular Volume 87.9 fL (80-100); Mean Platelet Volume 10.6 fL (7.4-10.4); Platelet Count 173 K/uL (130-400); RDW Coefficient of Variation 13.3 % (11.5-14.5); RDW Standard Deviation 42.6 fL (36.4-46.3); Red Blood Count 3.89 M/uL (4.7-6.1); White Blood Count 4.57 K/uL (4.8-10.8)
[2019-09-25 06:14] LABS: BUN Creatinine Ratio 14.1 (10-20); Calcium 7.6 mg/dl (8.5-10.1); Creatinine Clr Calc Pharmacy 50.4 ml/min; Est GFR (African American) 56.6; Est GFR (Non-African American) 48.8
[2019-09-25] MEDS ORDERED: PROCHLORPERAZINE MALEATE 5 MG TAB PO ONE (06:26)
[2019-09-25] MEDS: carvediloL 12.5 MG TAB PO SCH (08:27)
[2019-09-25] MEDS: APIXABAN 5 MG TABLET PO SCH (08:27)
[2019-09-25] MEDS ORDERED: cefUROXime axetil 500 MG TAB PO SCH (18:30)
== END 2019-09-25 14:56 | disposition home or self-care (01) | DRG 854 ==
LOC: ED 15:00 → ASU 19:01 → SUATTDRO 19:02 → 2S 19:02